=== PATIENT | male | born 1980 | race Caucasian/White ===

== ENCOUNTER 2016-06-01 20:20 | Emergency (ER) | payer OTHER ==
[2016-06-01] MEDS ORDERED: ACETAMINOPHEN 325 MG TABLET PO ONE (20:51)
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
[2016-06-01 22:11] VITALS: BP 130/80
== END 2016-06-01 22:10 | disposition home or self-care (01) ==
LOC: ER 20:20
DX: M54.2 Cervicalgia (principal); M54.9 Dorsalgia, unspecified; V87.7XXA Person injured in collision between other specified motor vehicles (traffic), initial encounter
CPT/HCPCS: 99283; 72125; L0120

== ENCOUNTER → 2018-12-21 | Day surgery (SDC) | payer OTHER ==
--- NOTE | 2018-12-21 13:15 | RADIOLOGY REPORT (SQ) ---
EXAM DESCRIPTION: ARTHRO SHOULDER INJECTION; FLUORO/NEEDLE PLACEMENT COMPLETED DATE/TIME: 12/21/2018 9:51 am REASON FOR STUDY: S43.432A SUPERIOR GLENOID LABRUM LESION OF LEFT SHOULDER, INITIAL ENCOUNTER S43.43 2A SUPERIOR GLENOID LABRUM LESION OF LEFT SHOULDER, IN COMPARISON: None. FLUOROSCOPY TIME: 14 seconds. 1 image saved to PACS. LIMITATIONS: None. PROCEDURE: Procedure, risks, benefits and alternatives explained to patient who then gave written co nsent. The left shoulder was marked and a time out was called for correct procedure verification. Po sterior entry site marked using fluoroscopic guidance. Shoulder prepped and draped using sterile jeff hnique. Local anesthesia achieved using 1% lidocaine injection. Hypodermic needle introduced into t he joint space under direct fluoroscopic visualization. Non-ionic contrast instilled to confirm intra -articular position. Dilute gadolinium solution then injected. Needle removed and entry site covered with sterile bandage. No immediate complications noted. TECHNIQUE: Digital images acquired during fluoroscopy and stored on PACS. Patient immediately take n to the MR suite for additional imaging. INJECTION LOCATION: Posterior left shoulder. CONTRAST TYPE AND AMOUNT: 12 mL Dotarem/Saline mixture. IMPRESSION: SUCCESSFUL NEEDLE PLACEMENT AND INJECTION FOR LEFT SHOULDER MR ARTHROGRAM USING POSTERIO R APPROACH. COMMENT: Quality ID [id number]: Final reports for procedures using fluoroscopy that document radiation exp osure indices, or exposure time and number of fluorographic images (if radiation exposure indices are not available) TECHNICAL DOCUMENTATION: JOB ID: [id number] [employer]- All Rights Reserved Reading location - IP/workstation name: [email or web address]
--- NOTE | 2018-12-23 09:04 | RADIOLOGY REPORT (SQ) ---
EXAM DESCRIPTION: MRI LT UPPER JOINT WITH COMPLETED DATE/TIME: 12/21/2018 10:22 am REASON FOR STUDY: S43.432A SUPERIOR GLENOID LABRUM LESION OF LEFT SHOULDER, INITIAL ENCOUNTER S43.43 2A SUPERIOR GLENOID LABRUM LESION OF LEFT SHOULDER, IN COMPARISON: None. TECHNIQUE: Left shoulder images acquired and stored on PACS. Oblique coronal, oblique sagittal, and axial imaging to include fat sensitive sequences as T1, water sensitive sequences as FST2/STIR, and c ontrast sensitive sequences as FST1. LIMITATIONS: None. FINDINGS: JOINT DISTENTION: Adequate. BONE MARROW AND CORTEX: Prominent lateral and posterior humeral head cysts close to cuff insertion. AC JOINT: Intact without widening or significant overgrowth. Preserved subacromial space. GLENOHUMERAL JOINT: Chondral thinning without focal defects. ROTATOR CUFF: Mild irregular partial tear along cuff insertion, undersurface and interstitial but no full-thickness breech or suggestion of high-grade tear. No cuff muscle atrophy. LABRUM AND BICEPS LABRAL COMPLEX: Superior labral tear involves the biceps anchor. Probably type 3 o r 4 lesion, however the tear extends diffusely throughout the posterior labrum as well along the ken[place] drolabral interface. Biceps tendon looks relatively intact. INFERIOR LABRAL COMPLEX: Irregular labral tissue loss diffusely. ADJACENT SOFT TISSUES: Normal. OTHER: No other significant finding. IMPRESSION: 1. Extensive labral tears. Includes tear of the biceps anchor. 2. Partial thickness cuff tear with reactive bone cyst formation. No full-thickness tear evident. TECHNICAL DOCUMENTATION: JOB ID: [id number] [employer]- All Rights Reserved Reading location - IP/workstation name: [email or web address]
== END ==
LOC: RAD 08:57
PROVIDERS: ATTEND Orthopaedic Surgery
DX: S43.432A Superior glenoid labrum lesion of left shoulder, initial encounter (principal); X58.XXXA Exposure to other specified factors, initial encounter
CPT/HCPCS: 73222; 77002; 23350; A9576